=== PATIENT | female | born 1990 | race Caucasian/White ===

== ENCOUNTER 2021-11-10 08:26 | Emergency (ER) | payer OTHER, SELFPAY ==
--- NOTE | 2021-11-10 08:28 | ED.URI ---
HPI - URI/Sore Throat General Chief Complaint: Upper Respiratory Infection Stated Complaint: sore throat ears Time Seen by Provider: 11/10/21 08:28 Source: patient and RN notes reviewed History of Present Illness HPI Narrative: Patient is a 31-year-old female who presents the urgent care with complaints of bilateral ear pressure and sore throat. Patient states that the sore throat has been ongoing for at least 1 week. States that she did have a negative COVID test. Denies any fever, nausea or vomiting. States that she has been taking her daily Zyrtec as well as [id number] cold and flu medication. States that her brother was just positive for strep this past week. Otherwise no other positive exposures. No acute distress noted. Patient aware of the plan of care. Some parts of this dictation were generated by voice recognition software and may contain typographical and/or grammatical inaccuracies. Related Data Home Medications Medication Instructions Recorded Confirmed norgestimate 0.25 mg-ethinyl 1 tablet PO DAILY 11/10/21 11/10/21 estradiol 35 mcg tablet (Estarylla) sertraline 100 mg tablet 100 mg PO DAILY 11/10/21 11/10/21 Allergies Allergy/AdvReac Type Severity Reaction Status Date / Time No Known Allergies Allergy Unknown Verified 11/10/21 08:41 Review of Systems Review of Systems: CONSTITUTIONAL: Denies fever, chills, or sweats. EYES: Denies visual changes, redness, or discharge. ENT: Reports of sore throat and bilateral otalgia CARDIOVASCULAR: Denies chest pain, palpitations, or edema. RESPIRATORY: Denies cough or dyspnea. GASTROINTESTINAL: Denies abdominal pain, nausea, vomiting, or diarrhea. GENITOURINARY: Denies dysuria or hematuria. SKIN: Denies rash or itching. MUSCULOSKELETAL: Denies back pain, joint pain, or myalgia. NEUROLOGIC: Denies headache, numbness, or weakness. All other systems reviewed are negative, except as documented in HPI. PMFSH Comments At the time of my signature, I reviewed and agree with the nursing past medical, surgical, social, and family history. There is no relevant family history pertinent to the patient complaint. Exam Narrative: GENERAL: This is a well-nourished, well-developed patient, in no apparent distress. HEAD: normocephalic, atraumatic. EYES: PERRL. Sclera clear/white. Vision is grossly intact. EARS: External ears normal, auditory canals clear and without drainage, TMs normal without perforation. Hearing grossly intact. NOSE: External nose normal with no obvious nasal discharge, nares without redness, no rhinorrhea. THROAT: Mucous membranes moist. Moderate erythema noted posterior pharynx with moderate postnasal drainage. NECK: Neck supple CARDIOVASCULAR: Regular rate and rhythm without murmurs, gallops, or rubs. RESPIRATORY: Clear to auscultation. Breath sounds equal bilaterally. No wheezes, rales, or rhonchi. SKIN: warm, intact with no suspicious lesions or rash, good texture and turgor. NEURO: awake, alert, and oriented to person, place and time. There were no obvious focal neurologic abnormalities. EXTREMITIES: No clubbing, cyanosis, or edema. Course Course Level of Care: Express Care Visit Vital Signs Vital signs: Vital Signs Temperature 98.1 F 11/10/21 08:33 Pulse Rate 81 11/10/21 08:33 Respiratory Rate 16 11/10/21 08:33 Blood Pressure 106/62 11/10/21 08:33 Pulse Oximetry 100 11/10/21 08:33 Oxygen Delivery Room Air 11/10/21 08:33 Temperature 98.1 F 11/10/21 08:33 Pulse Rate 81 11/10/21 08:33 Respiratory Rate 16 11/10/21 08:33 Blood Pressure 106/62 11/10/21 08:33 Pulse Oximetry 100 11/10/21 08:33 Oxygen Delivery Room Air 11/10/21 08:33 Reviewed MDM - URI/Sore Throat MDM Narrative Medical decision making narrative: Reviewed lab results with the patient. She is aware that strep swab was negative. Educated patient on culture we will call within 72 hours if culture is positive and antibiotics are n
[2021-11-10 08:33] VITALS: BP 106/62; PULSE 81; RESP 16; TEMP 36.7; O2SAT 100
== END 2021-11-10 08:58 | disposition home or self-care (01) ==
PROVIDERS: Emergency Provider Nurse Practitioner Family
DX: J02.9 Acute pharyngitis, unspecified (principal)
CPT/HCPCS: 87081; 87880; 99203; G0463

== ENCOUNTER 2022-06-22 10:24 | Emergency (ER) | payer OTHER, SELFPAY ==
--- NOTE | ~2022-06-22 | US_ITS ---
EXAMINATION: US OB <=14 wk fetus w TV DATE: 06/22/2022 12:17 INDICATION: Vaginal bleeding. Miscarriage at 12 weeks. TECHNIQUE: Real-time transabdominal and transvaginal pelvic ultrasound was performed. COMPARISON: None. FINDINGS: TRANSABDOMINAL ULTRASOUND: The uterus measures 12.8 x 5.6 x 7.7 cm. TRANSVAGINAL ULTRASOUND: The endometrial complex measures 17 mm in thickness. No internal vascular fl ow on color Doppler. There is no visible gestational sac. The right ovary measures 3.6 x 2.2 x 3.8 c m. The left ovary measures 4.1 x 3.8 x 3.8 cm. There is no free fluid in the pelvis. IMPRESSION: 1. Endometrial complex thickness of 17 mm. The differential diagnosis includes spontaneous with retained products of conception, ectopic , and normal early . Correlate with a ny outside ultrasounds or outside quantitative Beta-hCGs. Reviewed, dictated and finalized at location A. ING BED OPERATOR IMPRESSION: 1. Endometrial complex thickness of 17 mm. The differential diagnosis includes spontaneous with retained products of conception, ectopic , and normal early . Correlate with any outside ultrasounds or outside q uantitative Beta-hCGs.
[2022-06-22 10:32] VITALS: BP 114/69; PULSE 73; RESP 18; TEMP 36.5; O2SAT 100
--- NOTE | 2022-06-22 10:46 | ED.GENADULT ---
HPI - General Adult General Chief complaint: Vaginal Bleeding Stated complaint: miscarriage Time Seen by Provider: 06/22/22 10:34 History of Present Illness HPI narrative: 32-year-old female presenting to the emergency department for evaluation of increased bleeding and lower abdominal pain secondary to a presumed miscarriage. Patient is approximately 12 weeks and 4 days and does follow-up with Dr. De La Torre. Patient began having some spotting yesterday and did follow-up yesterday with Dr. De La Torre and was told that the miscarriage. Patient was to be scheduled for a D&C but had increased pain and bleeding last night. Patient called her SMT OPERATOR office and was told to present to the emergency department. Patient reports at this time her pain is controlled and patient declined any medications for pain control. Related Data Home Medications Medication Instructions Recorded Confirmed sertraline 100 mg tablet 100 mg PO DAILY 11/10/21 11/10/21 Allergies Allergy/AdvReac Type Severity Reaction Status Date / Time No Known Allergies Allergy Unknown Verified 06/22/22 10:37 Review of Systems Review of Systems: CONSTITUTIONAL: Denies fever, chills, or sweats. EYES: Denies visual changes, redness, or discharge. ENT: Denies rhinorrhea, congestion, sore throat, or otalgia. CARDIOVASCULAR: Denies chest pain, palpitations, or edema. RESPIRATORY: Denies cough or dyspnea. GASTROINTESTINAL: Denies abdominal pain, nausea, vomiting, or diarrhea. GENITOURINARY: See HPI SKIN: Denies rash or itching. MUSCULOSKELETAL: Denies back pain, joint pain, or myalgia. NEUROLOGIC: Denies headache, numbness, or weakness. Exam Narrative: APPEARANCE: Well appearing, no pain, no distress, well-nourished. HEAD: normocephalic, atraumatic. EYES: PERRLA/EOMI, conjunctivae clear. NOSE: Normal no drainage NECK: Supple. No adenopathy, no masses. RESPIRATORY: Airway patent, respirations nonlabored. Clear to auscultation bilaterally, no rales, rhonchi, wheezing. CARDIOVASCULAR: Regular rate and rhythm without murmurs rubs or gallops. ABDOMINAL: Soft, nontender, nondistended, normal bowel sounds Pelvic exam: Small amount of suspected placental tissue was at the opening of the cervix and was removed. Patient had no large clots in the vaginal vault. No rapid refilling of the vaginal vault during exam. MUSCULOSKELETAL: Moves all extremities. Strength/ROM intact, No edema, No calf tenderness. NEURO: Alert. Cranial nerves II through XII intact. Grossly intact SKIN: Warm, dry. Normal Color Course Course Emergency Course: Patient was treated with IV fluids. case was discussed with SMT OPERATOR shortly after arrival to the emergency department. Dr. De La Torre did request an ultrasound to rule out retained products of conception. Ultrasound did show endometrial thickening with concern for retained products. On the pelvic exam patient did have some tissue and clots. This did not appear to be tissue. This finding was discussed with SMT OPERATOR and they did not feel that this needed to be sent to pathology. OB stated they could not do the D&C as outpatient or patient could be admitted and this could be done tomorrow morning. Patient was offered admission for anticipated D&C and patient declined. She does feel improved and prefers to have outpatient follow-up. Case was once again discussed with SMT OPERATOR and he confirmed that they are attempting to get her set up as an outpatient. Patient is having a miscarriage. Differential does include ectopic but with prior ultrasounds also confirming miscarriage this is less likely. Patient will have close OB follow-up. Beta-hCG was obtained but no other beta-hCG is on file to compare to. Patient is afebrile with no leukocytosis. Patient hemoglobin is stable at 12.3. Patient was normotensive at time of discharge. Patient's electrolytes are within normal limits. Patient's UA shows hematuria but no evidence of infection. Patient's blood type
[2022-06-22 10:59] LABS: Basophils Absolute Auto 0.1 K/mm3 (0.0-0.1); Basophils Percent Auto 0.6 % (0.2-1.2); Eosinophils Absolute Auto 0.2 K/mm3 (0-0.3); Eosinophils Percent Auto 2.4 % (0-4.4); Hematocrit 35.7 % (37.0-47.0); Hemoglobin 12.3 g/dL (12.0-15.0); Immature Granulocyte Absolute 0.02 K/mm3 (0.00-0.031); Immature Granulocyte Percent A 0.2 % (0-0.5); Lymphocytes Absolute Auto 1.42 K/mm3 (0.9-3.2); Lymphocytes Percent Auto 17.7 % (18.3-44.2); Mean Corpuscular HGB Conc 34.5 g/dl (32-36); Mean Corpuscular Hemoglobin 29.8 pg (26-34); Mean Corpuscular Volume 86.4 fl (80-100); Mean Platelet Volume 10.2 fl (7.4-10.4); Monocytes Absolute Auto 0.4 K/mm3 (0.1-0.6); Monocytes Percent Auto 5.1 % (2.6-8.5); Neutrophils Absolute Auto 5.9 K/mm3 (1.3-6.7); Platelet Count Result 230 k/mm3 (150-375); Red Blood Count 4.13 M/mm3 (4.2-5.4); Red Cell Distribution Width 12.9 % (11.5-14.5)
[2022-06-22 11:11] LABS: Alanine Aminotransferase 24 U/L (6-35); Albumin Level 4.4 g/dL (3.5-5.1); Alkaline Phosphatase 45 U/L (38-126); Anion Gap 7 mmol/L (8-16); Aspartate Amino Transferase 25 U/L (14-36); Bilirubin,Total 0.5 mg/dL (0.2-1.3); Blood Urea Nitrogen 12 mg/dL (7-17); Calcium 8.5 mg/dL (8.4-10.2); Carbon Dioxide 26 mmol/L (22-30); Chloride 100 mmol/L (98-107); Estimated CRCL calculation 100 ml/min; Estimated Glomerular Filt Rate > 60; Glucose 154 mg/dL (65-110); Sodium 133 mmol/L (137-145)
[2022-06-22 11:14] LABS: Prothrombin Time 12.8 Seconds (11.1-14.7)
[2022-06-22] MEDS: SODIUM CHLORIDE 0.9% IV 1,000 ML 999 ML IV CONT (11:15)
[2022-06-22 11:22] LABS: Add Urine Microscopic? YES; Appearance Urine Cloudy (Clear); Bilirubin Urine Negative (Negative); Blood Urine 3+ (Negative); Glucose Urine UA Negative (Negative); Ketones Urine Negative (Negative); Leukocyte Esterase Ur Trace LEU/UL (Negative); Nitrate Urine Negative (Negative); Protein Urine 1+ mg/dL (Negative); Specific Grav Ur 1.015 (1.001-1.035); Urobilinogen Urine 0.2 mg/dL (<2.0)
[2022-06-22 11:27] LABS: Color Urine Light Red (Yellow)
[2022-06-22 11:30] LABS: RBC Urine >75 /hpf (0-2); Squamous Epithelial Cell Urine Occasional /hpf (Few); WBC Urine 0-3 /hpf
--- NOTE | 2022-06-22 14:11 | PC.NURSE ---
MONICA Parks stated that it was not a fetus that the patient passed just a clot.
--- NOTE | 2022-07-03 07:58 | PC.NURSE ---
late entry 06/22/22 @ 1215 ns bolus 1000 cc infused
== END 2022-06-22 14:21 | disposition home or self-care (01) ==
PROVIDERS: Emergency Provider Emergency Medicine
DX: O03.4 Incomplete spontaneous abortion without complication (principal)
CPT/HCPCS: 36415; 76801; 76817; 80053; 81001; 84702; 85025; 85610; 85730; 86850; 86900; 86901; 96360; 99284; J7030

== ENCOUNTER 2022-06-28 18:12 | Emergency (ER) | payer OTHER, SELFPAY ==
[2022-06-28] VITALS (10 sets, daily range): BP systolic 94–116; BP diastolic 60–84; PULSE 80–100; RESP 12–18; O2SAT 98–100
--- NOTE | ~2022-06-28 | US_ITS ---
EXAMINATION: US OB <=14 wk fetus w TV DATE: 06/28/2022 22:01 INDICATION: Pelvic pain. Miscarriage. TECHNIQUE: Real-time transabdominal and transvaginal pelvic ultrasound was performed. COMPARISON: Ultrasound 06/22/2022 FINDINGS: TRANSABDOMINAL ULTRASOUND: The uterus measures 10.4 x 3.9 x 5.6 cm. TRANSVAGINAL ULTRASOUND: The endometrial thickness is 8 mm. The right ovary measures 3.5 x 2.0 x 2.9 cm. The left ovary measures 3.4 x 1.6 x 2.1 cm. There is no free fluid in the pelvis. IMPRESSION: 1. No retained products of conception. Reviewed, dictated and finalized at location A. NALYTICS TEAM LEAD
--- NOTE | ~2022-06-28 | CT_ITS ---
EXAMINATION: CT abdomen pelvis w con DATE: 06/28/2022 22:50 INDICATION: Low abdominal pain. TECHNIQUE: Computed tomography (CT) of the abdomen and pelvis was performed with 100 mL Omnipaque 350 intravenous contrast. Automated exposure control and iterative reconstruction technique were employe d. The dose-length product was 251.91 mGy-cm. COMPARISON: None. FINDINGS: The visualized portions of the lung bases demonstrate mild atelectasis. No pleural effusion . The heart size is normal. No pericardial effusion. The liver, gallbladder, spleen, pancreas, adrena l glands, and kidneys are normal. There are no dilated loops of bowel. The appendix is not visualized . There are no pathologically enlarged lymph nodes. There is physiologic fluid in the pelvis. There i s mild thoracic spondylosis and moderate lower lumbar spondylosis. IMPRESSION: 1. No etiology for the patient's symptoms. Reviewed, dictated and finalized at location A. ER JOURNEYMAN
[2022-06-28 19:04] LABS: Basophils Absolute Auto 0.1 K/mm3 (0.0-0.1); Basophils Percent Auto 0.4 % (0.2-1.2); Eosinophils Absolute Auto 0.1 K/mm3 (0-0.3); Eosinophils Percent Auto 0.6 % (0-4.4); Hemoglobin 15.6 g/dL (12.0-15.0); Immature Granulocyte Absolute 0.08 K/mm3 (0.00-0.031); Immature Granulocyte Percent A 0.4 % (0-0.5); Lymphocytes Absolute Auto 1.15 K/mm3 (0.9-3.2); Lymphocytes Percent Auto 5.3 % (18.3-44.2); Mean Corpuscular HGB Conc 33.9 g/dl (32-36); Mean Corpuscular Hemoglobin 29.9 pg (26-34); Mean Corpuscular Volume 88.3 fl (80-100); Mean Platelet Volume 10.2 fl (7.4-10.4); Monocytes Percent Auto 4.8 % (2.6-8.5); Neutrophils Absolute Auto 19.3 K/mm3 (1.3-6.7); Neutrophils Percent Auto 88.5 % (45.5-73.1); Platelet Count Result 389 k/mm3 (150-375); Red Blood Count 5.21 M/mm3 (4.2-5.4); Red Cell Distribution Width 12.7 % (11.5-14.5); White Blood Count 21.8 K/mm3 (4.5-10.0)
[2022-06-28 19:13] LABS: Alanine Aminotransferase 36 U/L (6-35); Albumin Level 5.3 g/dL (3.5-5.1); Alkaline Phosphatase 66 U/L (38-126); Anion Gap 14 mmol/L (8-16); Aspartate Amino Transferase 38 U/L (14-36); Bilirubin,Total 0.7 mg/dL (0.2-1.3); Blood Urea Nitrogen 13 mg/dL (7-17); Carbon Dioxide 22 mmol/L (22-30); Chloride 105 mmol/L (98-107); Estimated Glomerular Filt Rate > 60; Glucose 142 mg/dL (65-110); Lipase 56 U/L (23-300); Potassium 4.1 mmol/L (3.4-5.0); Sodium 141 mmol/L (137-145)
[2022-06-28] MEDS: ONDANSETRON INJ 4 MG/2 ML VIAL IV PUSH ×2 (19:23→22:24)
[2022-06-28] MEDS: SODIUM CHLORIDE 0.9% IV 1,000 ML 999 ML IV CONT ×2 (19:23→20:05)
[2022-06-28 20:52] LABS: Add Urine Microscopic? YES; Appearance Urine Cloudy (Clear); Bilirubin Urine 1+ (Negative); Blood Urine 2+ (Negative); Color Urine Brown (Yellow); Glucose Urine UA Negative (Negative); Ketones Urine Trace mg/dL (Negative); Leukocyte Esterase Ur Negative LEU/UL (Negative); Nitrate Urine Negative (Negative); Protein Urine 3+ mg/dL (Negative); Specific Grav Ur >= 1.030 (1.001-1.035); Urobilinogen Urine 0.2 mg/dL (<2.0); pH Urine 5.5 (5.0-9.0)
[2022-06-28 20:59] LABS: Mucus Urine Heavy /lpf; RBC Urine >75 /hpf (0-2); Squamous Epithelial Cell Urine Many /hpf (Few); WBC Urine 31-50 /hpf
[2022-06-28 21:47] LABS: Beta HCG Quantitative 49.78 mIU/ML
[2022-06-28] MEDS: MORPHINE SULFATE (*CRX) 4 MG/ML INJ IV PUSH (22:36)
[2022-06-28] MEDS: DICYCLOMINE HCL INJ 20 MG/2 ML VIAL IM (23:53)
[2022-06-29] VITALS (10 sets, daily range): BP systolic 91–108; BP diastolic 58–68; PULSE 68–111; RESP 11–18; O2SAT 94–100
--- NOTE | 2022-06-29 00:02 | ED.ABDPAIN ---
HPI - Abdominal Pain General Chief Complaint: Abdominal Pain Stated Complaint: abd cramping, diarrhea Time Seen by Provider: 06/28/22 19:05 History of Present Illness HPI narrative: Patient is a 32-year-old female who presents the ER with nausea and vomiting and diarrhea. She had 5 episodes of diarrhea and has had multiple episodes of vomiting and dry heaving throughout the day. She is feeling weak and lightheaded. Her daughter was sick with a similar illness 4 days earlier. No chest pain or chest pressure. Patient is also currently at the end of a miscarriage. She was 11 weeks gestation and started miscarrying 1 week ago. She has some mild suprapubic cramping is no longer bleeding. She is having more intense right and left lower quadrant cramping that is not midline. Has found no alleviating factors at home. Related Data Home Medications Medication Instructions Recorded Confirmed sertraline 100 mg tablet 100 mg PO DAILY 11/10/21 11/10/21 Allergies Allergy/AdvReac Type Severity Reaction Status Date / Time No Known Allergies Allergy Unknown Verified 06/28/22 18:57 Review of Systems Review of Systems: All systems reviewed & are unremarkable except as noted in HPI and below Constitutional: Constitutional: Denies chills, Reports fatigue, Denies fever(s) and Reports weakness ENT: Denies nasal congestion and Denies sore throat Cardiovascular: Cardiovascular: Reports no additional cardiovascular complaints Respiratory: Respiratory: Reports no additional respiratory complaints Gastrointestinal: Gastrointestinal: Reports abdominal pain, Reports diarrhea, Reports nausea and Reports vomiting Genitourinary: Genitourinary: Denies abnormal vaginal bleeding, Denies nocturia, Denies dysuria, Reports pelvic pain and Denies flank pain PMFSH Past Medical History Medical History (Updated 06/29/22 @ 02:18 by Tee Nunez MD) Endometriosis Irritable bowel syndrome Surgical History Surgical History (Updated 06/29/22 @ 02:18 by Tee Nunez MD) History of appendectomy History of colonoscopy Exam Narrative: GENERAL: Ill-appearing, well-nourished, and in no acute distress. HEAD: Normocephalic, atraumatic. ENT: Dry mucous membranes. NECK: Supple. CHEST: Clear to auscultation. No respiratory distress. HEART: Regular rate and rhythm. Normal peripheral pulses. ABDOMEN: Soft, bilateral lower abdominal tenderness without guarding, nondistended. EXTREMITIES: Normal range of motion. No edema. SKIN: Warm, dry, no rash. NEURO: Alert and oriented x3. PSYCH: Normal mood and affect. Course Course Emergency Course: Patient hydrated with 3 L of IV fluid and has had multiple rounds of antiemetics and has had some dicyclomine for abdominal cramping. Patient is feeling markedly improved. White blood cell count felt to be reactive related to retching and heaving. Patient has been challenged with oral fluid and has kept it down without issue. Feels comfortable with discharge home. Urine felt to be contaminated. No evidence of retained products of conception on ultrasound discharge home with supportive therapy. Vital Signs Vital signs: Vital Signs Pulse Rate 80 06/28/22 19:11 Respiratory Rate 18 06/28/22 19:11 Blood Pressure 94/60 L 06/28/22 19:11 Pulse Oximetry 100 06/28/22 19:11 Pulse Rate 94 06/29/22 00:01 Respiratory Rate 12 06/29/22 00:01 Blood Pressure 108/68 06/29/22 00:00 Pulse Oximetry 99 06/28/22 23:45 MDM - Abdominal Pain Lab Data 06/28/22 18:58 06/28/22 18:58 Labs: Lab Results 06/28/22 06/28/22 06/28/22 Range/Units 18:58 18:58 18:58 WBC 21.8 H (4.5-10.0) K/mm3 RBC 5.21 (4.2-5.4) M/mm3 Hgb 15.6 H D (12.0-15.0) g/dL Hct 46.0 (37.0-47.0) % MCV 88.3 (80-100) fl MCH 29.9 (26-34) pg MCHC 33.9 (32-36) g/dl RDW 12.7 (11.5-14.5) % Plt Count 389 H D (150-375) k/mm3 MPV 10.2 (7.4-10.
[2022-06-29] MEDS: PROMETHAZINE HCL 25 MG/ML AMPUL 12.5 MG IV PUSH (00:48)
[2022-06-29] MEDS: LACTATED RINGERS 1,000 ML 999 ML IV CONT (00:50)
--- NOTE | 2022-06-29 01:53 | PC.NURSE ---
Got pt up to ambulate. Pt ambulated with steady gait. States she feels much better than the first time she ambulated. Dr. Nunez notified.
== END 2022-06-29 02:14 | disposition home or self-care (01) ==
PROVIDERS: Emergency Medicine; Emergency Provider Emergency Medicine
DX: K52.9 Noninfective gastroenteritis and colitis, unspecified (principal)
CPT/HCPCS: 36415; 74177; 76801; 76817; 80053; 81001; 81025; 83690; 84702; 85025; 87086; 96361; 96372; 96374; 96375; 96376; 99284; J0500; J2270; J2405; J2550; J7030; J7120; Q9967

== ENCOUNTER 2023-06-14 08:46 | Emergency (ER) | payer OTHER, SELFPAY ==
[2023-06-14 08:52] VITALS: BP 96/68; PULSE 89; RESP 20; TEMP 36.6; O2SAT 99
--- NOTE | 2023-06-14 08:54 | ED.URI ---
HPI - URI/Sore Throat General Chief Complaint: Upper Respiratory Infection Stated Complaint: Ear/head congestion/cough Time Seen by Provider: 06/14/23 09:18 Source: patient, RN notes reviewed and old records reviewed Mode of arrival: ambulatory Limitations: no limitations History of Present Illness HPI Narrative: 33 year female presents to the [facility] with complaints of 5 days of head congestion and cough. Started with bilateral ear pain yesterday. Patient states she has been taking DayQuil with some relief. Has had feelings of being feverish without measurement. Patient reports taking and COVID test yesterday which she reports as negative. Patient denies any flu exposure, declines testing Denies sore throat. Onset (ago): day(s) (5) Treatments prior to arrival: cold medicine Related Data Home Medications Medication Instructions Recorded Confirmed sertraline 100 mg tablet 100 mg PO DAILY 11/10/21 11/10/21 Allergies Allergy/AdvReac Type Severity Reaction Status Date / Time No Known Allergies Allergy Unknown Verified 06/28/22 18:57 Review of Systems Review of Systems: All systems reviewed & are unremarkable except as noted in HPI and below Constitutional: Constitutional: Reports no additional constitutional complaints Eyes: Eyes: Reports no additional eye complaints ENT: Reports as per HPI, Reports otalgia, Reports nasal congestion and Denies sore throat Cardiovascular: Cardiovascular: Reports no additional cardiovascular complaints, Denies chest pain and Denies dyspnea Respiratory: Respiratory: Reports as per HPI, Denies chest congestion, Reports cough and Denies dyspnea Gastrointestinal: Gastrointestinal: Reports no additional gastrointestinal complaints, Denies abdominal pain, Denies nausea and Denies vomiting Musculoskeletal: Musculoskeletal: Reports no additional musculoskeletal complaints Integumentary/Breasts: Skin/Breast: Reports system reviewed and no additional complaints, except as docu Neurologic: Reports system reviewed and no additional complaints, except as documented Psychiatric: Psychiatric: Reports no additional psychiatric complaints Allergic/Immunologic: Allergic/Immunologic: Reports no additional allergic/immunologic complaints [facility] Past Medical History Medical History Anxiety and depression Endometriosis Irritable bowel syndrome Surgical History Surgical History History of appendectomy History of colonoscopy Comments At the time of my signature, I reviewed and agree with the nursing past medical, surgical, social, and family history. There is no relevant family history pertinent to the patient complaint. Exam Const: General: cooperative, healthy appearing, comfortable, no acute distress, well developed, alert and well nourished Nutritional Appearance: well nourished Orientation/consciousness: patient oriented x3 Limitations: no limitations HENMT: Head: normal to inspection Ears: hearing grossly normal bilaterally, external ears normal, TM normal on the right, EAC's normal, mastoids normal, no periauricular adenopathy and TM abnormal erythematous on the left Face/Nose/Sinus: Normal external nose present, Normal nares present, Normal nasal mucous membranes and turbinates present, normal facial exam and face symmetric Face and sinus: normal facial exam and face symmetric Mouth: Yes Normal oral and palatal mucosa present, Yes lip normal and Yes moist mucous membranes Throat: posterior oropharynx normal, uvula midline and postnasal drainage Eyes: General: appearance normal, both eyes and all related structures Alignment and Position: alignment normal Periorbital: periorbital findings normal Pupils: Equal, round and reactive pupils present EOM: EOMs intact bilaterally Neck: Neck: normal visual inspection, full ROM, no lymphadenopathy and no meningeal signs Chest:
[2023-06-14 08:56] VITALS: BP 96/68; PULSE 89; RESP 20; TEMP 36.6; O2SAT 99
== END 2023-06-14 09:33 | disposition home or self-care (01) ==
PROVIDERS: Emergency Provider Nurse Practitioner
DX: H66.92 Otitis media, unspecified, left ear (principal); R09.82 Postnasal drip; J06.9 Acute upper respiratory infection, unspecified; N80.9 Endometriosis, unspecified; F41.9 Anxiety disorder, unspecified; F32.A Depression, unspecified
CPT/HCPCS: 99213; G0463